=== PATIENT | male | born 1935 | race Caucasian/White ===

== ENCOUNTER 2017-04-15 11:29 | Emergency (ER) | payer MEDICARE ==
[~2017-04-15] VITALS: Ht 182.9 cm; Wt 76.2 kg
[~2017-04-15 11:29] MED LIST: ASPI-515 PO; ATOR20TA9 PO; CHOL10003 PO; GLUC1CAP18 PO; MULT-82 PO; NIAC500T PO; calcium PO; iron PO
[2017-04-15] MEDS ORDERED: METO25TA35 PO (11:39)
[2017-04-15] MEDS ORDERED: LEVO25TA4 PO (11:39)
[2017-04-15] MEDS ORDERED: L.E.T SOLUTION TP ONE ×4 (11:52→12:21)
[2017-04-15] MEDS ORDERED: SODIUM CHLORIDE 0.9% 1,000ML IVBOLUS ONE (12:00)
[2017-04-15] MEDS ORDERED: SODIUM CHLORIDE FLUSH 10ML SYR IVF ONE (12:00)
[2017-04-15 12:23] LABS: BLOOD UREA NITROGEN 27 mg/dL (7-18)
[2017-04-15 14:10] VITALS: BP 129/68
== END 2017-04-15 14:51 | disposition home or self-care (01) ==
LOC: ED 11:54
DX: S01.01XA Laceration without foreign body of scalp, initial encounter (principal); S50.311A Abrasion of right elbow, initial encounter; I48.2 Chronic atrial fibrillation; E78.00 Pure hypercholesterolemia, unspecified; W01.0XXA Fall on same level from slipping, tripping and stumbling without subsequent striking against object, initial encounter; Y93.01 Activity, walking, marching and hiking; Y92.410 Unspecified street and highway as the place of occurrence of the external cause; Y99.8 Other external cause status
CPT/HCPCS: 12002; 36415; 70450; 71010; 72072; 80048; 82040; 85025; 85610; 85730; 93005; 96360; 96361; 99285; J7030

== ENCOUNTER → 2017-04-21 | Outpatient (CLI) | payer MEDICARE ==
[~2017-04-21] MED LIST changes: +LEVO25TA4 PO; +METO25TA35 PO
== END | disposition home or self-care (01) ==
LOC: CVU 11:19
PROVIDERS: ATTEND Internal Medicine Cardiovascular Disease
DX: I07.1 Rheumatic tricuspid insufficiency (principal)
CPT/HCPCS: 93306

== ENCOUNTER → 2017-04-22 | Outpatient (CLI) | payer MEDICARE ==
[~2017-04-22] MED LIST changes: +REGADENOSON 0.4 MG/5 ML SYRINGE ONE
== END | disposition home or self-care (01) ==
LOC: CFH 11:42
PROVIDERS: ATTEND Internal Medicine Cardiovascular Disease
DX: R94.31 Abnormal electrocardiogram [ECG] [EKG] (principal)
CPT/HCPCS: 78452; 93017; A9502; J2785

== ENCOUNTER 2017-04-29 07:38 | Observation (INO) | payer MEDICARE ==
[~2017-04-29] VITALS: Ht 182.9 cm; Wt 74.9 kg
[~2017-04-29 07:38] MED LIST changes: -REGADENOSON 0.4 MG/5 ML SYRINGE ONE
[2017-04-29] MEDS ORDERED: SODIUM CHLORIDE 0.9% 1,000 ML IV SCH (07:41)
[2017-04-29] MEDS ORDERED: CEFAZOLIN PMX 1GM/50ML 50 ML IVPB ONE (08:00)
[2017-04-29] MEDS ORDERED: PLEASE ENTER HEIGHT AND WEIGHT MC SCH (08:00)
[2017-04-29] MEDS ORDERED: FENTANYL PF 100 MCG/2ML ONE (08:02)
[2017-04-29] MEDS ORDERED: CEFAZOLIN PMX 1GM/50ML 50 ML ONE (08:03)
[2017-04-29] MEDS ORDERED: MIDAZOLAM 1 MG/ML, 5ML ONE (08:03)
[2017-04-29] MEDS ORDERED: CEFAZOLIN 1,000 MG ONE (08:03)
[2017-04-29] MEDS ORDERED: LIDOCAINE 2%, 20ML ONE (08:03)
[2017-04-29 08:04] VITALS: BP 161/80
[2017-04-29] MEDS ORDERED: FERR324T8 PO (08:30)
[2017-04-29] MEDS ORDERED: METO25TA2 PO (08:30)
[2017-04-29 08:56] LABS: ASPARTATE AMINO TRANSFERASE 22 U/L (15-37); BLOOD UREA NITROGEN 17 mg/dL (7-18)
[2017-04-29] MEDS ORDERED: HYDROcodone/APAP 5/325 TABLET PO PRN (11:30)
[2017-04-29] MEDS ORDERED: ZOLPIDEM 5MG TABLET PO PRN (11:30)
[2017-04-29 13:47] VITALS: BP 109/70
[2017-04-29 14:07] VITALS: BP 113/72
[2017-04-29] MEDS: CEFAZOLIN PMX 1GM/50ML 50 ML IVPB SCH ×2 (17:21→21:02)
[2017-04-29 19:19] VITALS: BP 118/75
[2017-04-29] MEDS: SODIUM CHLORIDE FLUSH 10ML SYR IVF SCH (20:11)
[2017-04-29] MEDS ORDERED: NIACIN 500 MG TABLET.ER PO SCH (21:00)
[2017-04-29] MEDS ORDERED: ATORVASTATIN 20 MG TABLET PO SCH (21:00)
[2017-04-29] MEDS ORDERED: ASPIRIN 81 MG TABLET EC PO SCH (21:00)
[2017-04-30 02:48] VITALS: BP 128/71
[2017-04-30] MEDS ORDERED: LEVOTHYROXINE 50 MCG TABLET PO SCH (06:00)
[2017-04-30] MEDS ORDERED: METOPROLOL SUCCINATE 25 MG TAB.ER.24H PO SCH (06:00)
[2017-04-30 07:52] VITALS: BP 152/84
[2017-04-30] MEDS ORDERED: ACET325T21 PO (08:09)
[2017-04-30] MEDS: SODIUM CHLORIDE FLUSH 10ML SYR IVF SCH (08:54)
[2017-04-30] MEDS ORDERED: MULTIVITAMIN 1 TABLET PO SCH (09:00)
[2017-04-30] MEDS ORDERED: CHOLECALCIFEROL 1,000 UNIT TABLET PO SCH (09:00)
[2017-04-30] MEDS ORDERED: CALCIUM CARBONATE 500 MG TABLET PO SCH (09:00)
[2017-04-30] MEDS ORDERED: FERROUS GLUCONATE 324 MG TABLET PO SCH (09:00)
== END 2017-04-30 10:16 | disposition home or self-care (01) ==
LOC: CACL 07:38 → ORIP 11:09 → 5SO 11:28 → DCLOUNGE 04-30 10:01
PROVIDERS: ADMIT Internal Medicine Cardiovascular Disease; ATTEND Internal Medicine Cardiovascular Disease
DX: I44.1 Atrioventricular block, second degree (principal); R55 Syncope and collapse; I12.9 Hypertensive chronic kidney disease with stage 1 through stage 4 chronic kidney disease, or unspecified chronic kidney disease; N18.3 Chronic kidney disease, stage 3 (moderate); E78.5 Hyperlipidemia, unspecified; E03.9 Hypothyroidism, unspecified; I35.1 Nonrheumatic aortic (valve) insufficiency; I49.3 Ventricular premature depolarization; R73.01 Impaired fasting glucose
CPT/HCPCS: 33208; 36415; 71010; 71020; 80053; 85025; 85610; 93005; 96365; 96375; 99156; C1779; C1785; C1892; G0378; J0690; J2250; J3010; J3490

== ENCOUNTER → 2017-08-02 | Outpatient (CLI) | payer MEDICARE ==
[~2017-08-02] MED LIST changes: +ACET325T21 PO; +FERR324T8 PO; +METO25TA2 PO; +MULT-224 PO; -MULT-82 PO
== END | disposition home or self-care (01) ==
LOC: WOUND 12:53
PROVIDERS: ATTEND Specialist
DX: I87.2 Venous insufficiency (chronic) (peripheral) (principal); L97.222 Non-pressure chronic ulcer of left calf with fat layer exposed; L97.212 Non-pressure chronic ulcer of right calf with fat layer exposed; I12.9 Hypertensive chronic kidney disease with stage 1 through stage 4 chronic kidney disease, or unspecified chronic kidney disease; N18.3 Chronic kidney disease, stage 3 (moderate); E03.9 Hypothyroidism, unspecified; E78.00 Pure hypercholesterolemia, unspecified
CPT/HCPCS: 11042; G0463; WOU0463

== ENCOUNTER → 2017-08-10 | Outpatient (CLI) | payer MEDICARE | END | disposition home or self-care (01) | LOC: WOUND 09:40 | PROVIDERS: ATTEND Specialist | DX: I87.2 Venous insufficiency (chronic) (peripheral) (principal); L97.212 Non-pressure chronic ulcer of right calf with fat layer exposed; L97.222 Non-pressure chronic ulcer of left calf with fat layer exposed; E03.9 Hypothyroidism, unspecified; I12.9 Hypertensive chronic kidney disease with stage 1 through stage 4 chronic kidney disease, or unspecified chronic kidney disease; N18.3 Chronic kidney disease, stage 3 (moderate); M19.90 Unspecified osteoarthritis, unspecified site; E78.00 Pure hypercholesterolemia, unspecified; Z98.49 Cataract extraction status, unspecified eye | CPT/HCPCS: 97597 ==

== ENCOUNTER → 2017-08-24 | Outpatient (CLI) | payer MEDICARE | END | disposition home or self-care (01) | LOC: WOUND 09:53 | PROVIDERS: ATTEND Internal Medicine | DX: I87.2 Venous insufficiency (chronic) (peripheral) (principal); L97.212 Non-pressure chronic ulcer of right calf with fat layer exposed; L97.222 Non-pressure chronic ulcer of left calf with fat layer exposed; E03.9 Hypothyroidism, unspecified; E78.00 Pure hypercholesterolemia, unspecified; M19.90 Unspecified osteoarthritis, unspecified site; N18.3 Chronic kidney disease, stage 3 (moderate) | CPT/HCPCS: 97597 ==

== ENCOUNTER → 2017-09-10 | Outpatient (CLI) | payer MEDICARE | END | disposition home or self-care (01) | LOC: WOUND 08:34 | PROVIDERS: ATTEND Family Medicine | DX: E11.622 Type 2 diabetes mellitus with other skin ulcer (principal); L97.212 Non-pressure chronic ulcer of right calf with fat layer exposed; L97.222 Non-pressure chronic ulcer of left calf with fat layer exposed; E11.22 Type 2 diabetes mellitus with diabetic chronic kidney disease; I12.9 Hypertensive chronic kidney disease with stage 1 through stage 4 chronic kidney disease, or unspecified chronic kidney disease; N18.3 Chronic kidney disease, stage 3 (moderate); E03.9 Hypothyroidism, unspecified; E78.00 Pure hypercholesterolemia, unspecified; M19.90 Unspecified osteoarthritis, unspecified site; I87.2 Venous insufficiency (chronic) (peripheral) | CPT/HCPCS: 11042; 11045; 97597; 97598 ==

== ENCOUNTER → 2017-09-17 | Outpatient (CLI) | payer MEDICARE | END | disposition home or self-care (01) | LOC: WOUND 11:15 | PROVIDERS: ATTEND Family Medicine | DX: E11.622 Type 2 diabetes mellitus with other skin ulcer (principal); L97.212 Non-pressure chronic ulcer of right calf with fat layer exposed; L97.222 Non-pressure chronic ulcer of left calf with fat layer exposed; S41.112D Laceration without foreign body of left upper arm, subsequent encounter; E11.22 Type 2 diabetes mellitus with diabetic chronic kidney disease; I12.9 Hypertensive chronic kidney disease with stage 1 through stage 4 chronic kidney disease, or unspecified chronic kidney disease; N18.3 Chronic kidney disease, stage 3 (moderate); E03.9 Hypothyroidism, unspecified; E78.00 Pure hypercholesterolemia, unspecified; M19.90 Unspecified osteoarthritis, unspecified site; I87.2 Venous insufficiency (chronic) (peripheral); X58.XXXD Exposure to other specified factors, subsequent encounter | CPT/HCPCS: 97597; 97598 ==

== ENCOUNTER → 2017-09-27 | Outpatient (CLI) | payer MEDICARE | END | disposition home or self-care (01) | LOC: WOUND 11:00 | PROVIDERS: ATTEND Family Medicine | DX: E11.622 Type 2 diabetes mellitus with other skin ulcer (principal); L97.212 Non-pressure chronic ulcer of right calf with fat layer exposed; L97.222 Non-pressure chronic ulcer of left calf with fat layer exposed; S41.111D Laceration without foreign body of right upper arm, subsequent encounter; X58.XXXD Exposure to other specified factors, subsequent encounter; E11.22 Type 2 diabetes mellitus with diabetic chronic kidney disease; I12.9 Hypertensive chronic kidney disease with stage 1 through stage 4 chronic kidney disease, or unspecified chronic kidney disease; N18.3 Chronic kidney disease, stage 3 (moderate); E03.9 Hypothyroidism, unspecified; E78.00 Pure hypercholesterolemia, unspecified; M19.90 Unspecified osteoarthritis, unspecified site; I87.2 Venous insufficiency (chronic) (peripheral); Z98.49 Cataract extraction status, unspecified eye | CPT/HCPCS: 97597; 97598 ==

== ENCOUNTER → 2017-10-04 | Outpatient (CLI) | payer MEDICARE | END | disposition home or self-care (01) | LOC: WOUND 09:40 | PROVIDERS: ATTEND Family Medicine | DX: E11.622 Type 2 diabetes mellitus with other skin ulcer (principal); L97.212 Non-pressure chronic ulcer of right calf with fat layer exposed; L97.222 Non-pressure chronic ulcer of left calf with fat layer exposed; S51.812D Laceration without foreign body of left forearm, subsequent encounter; E11.22 Type 2 diabetes mellitus with diabetic chronic kidney disease; I12.9 Hypertensive chronic kidney disease with stage 1 through stage 4 chronic kidney disease, or unspecified chronic kidney disease; N18.3 Chronic kidney disease, stage 3 (moderate); E03.9 Hypothyroidism, unspecified; E78.00 Pure hypercholesterolemia, unspecified; M19.90 Unspecified osteoarthritis, unspecified site; I87.2 Venous insufficiency (chronic) (peripheral); X58.XXXD Exposure to other specified factors, subsequent encounter | CPT/HCPCS: 97597 ==

== ENCOUNTER → 2017-10-15 | Outpatient (CLI) | payer MEDICARE ==
[~2017-10-15] MED LIST changes: +FIDA200T PO; +MAGN71.5 PO
== END | disposition home or self-care (01) ==
LOC: WOUND 10:00
PROVIDERS: ATTEND Family Medicine
DX: E11.622 Type 2 diabetes mellitus with other skin ulcer (principal); L97.212 Non-pressure chronic ulcer of right calf with fat layer exposed; L97.222 Non-pressure chronic ulcer of left calf with fat layer exposed; I48.2 Chronic atrial fibrillation; E03.9 Hypothyroidism, unspecified; E78.01 Familial hypercholesterolemia; E11.22 Type 2 diabetes mellitus with diabetic chronic kidney disease; I13.0 Hypertensive heart and chronic kidney disease with heart failure and stage 1 through stage 4 chronic kidney disease, or unspecified chronic kidney disease; N18.3 Chronic kidney disease, stage 3 (moderate); I50.9 Heart failure, unspecified; M19.90 Unspecified osteoarthritis, unspecified site; I87.2 Venous insufficiency (chronic) (peripheral); Z95.0 Presence of cardiac pacemaker
CPT/HCPCS: G0463; WOU0463

== ENCOUNTER 2017-10-16 15:38 | Inpatient (IN) | payer MEDICARE ==
[~2017-10-16] VITALS: Ht 182.9 cm; Wt 81.8 kg
[~2017-10-16 15:38] MED LIST changes: -FIDA200T PO; -MAGN71.5 PO
[2017-10-16] MEDS ORDERED: SODIUM CHLORIDE 0.9% 1,000ML IVBOLUS ONE ×2 (16:30→18:00)
[2017-10-16 17:00] LABS: HEMATOCRIT 39.5 % (39.2-51.8); HEMOGLOBIN 13.3 g/dL (13.7-18.0); WHITE BLOOD COUNT 25.3 x10^3/uL (3.4-10)
[2017-10-16 17:16] LABS: BLOOD UREA NITROGEN 27 mg/dL (7-18); DIFF TOTAL CELLS COUNTED 100 CELL DIFF
[2017-10-16 17:18] LABS: VERIFY COUNTS? YES
[2017-10-16 17:31] LABS: IS PT STATUS REG ER OR PRE ER? YES
[2017-10-16] MEDS ORDERED: METRONIDAZOLE PMX 500MG/100ML 100 ML IV ONE (18:00)
[2017-10-16] MEDS ORDERED: METRONIDAZOLE PMX 500MG/100ML 100 ML ONE (18:00)
[2017-10-16] MEDS ORDERED: SODIUM CHLORIDE 0.9% 1,000 ML IV SCH (20:23)
[2017-10-16] MEDS ORDERED: SODIUM CHLORIDE 0.9% 1,000ML IV ONE (20:30)
[2017-10-16] MEDS ORDERED: ONDANSETRON ODT 4 MG PO PRN (20:30)
[2017-10-16] MEDS ORDERED: PHARMACY MAY ADJ FOR RENAL FX MC SCH (20:30)
[2017-10-16] MEDS ORDERED: ACETAMINOPHEN 325 MG TABLET PO PRN (20:30)
[2017-10-16] MEDS ORDERED: VANCOMYCIN 50 MG/ML ORAL SUSP PO SCH (21:00)
[2017-10-16] MEDS ORDERED: VANCOMYCIN PER PHARMACY MC PRN (21:00)
[2017-10-16 22:00] VITALS: BP 107/67
[2017-10-16 22:30] VITALS: BP 104/63
[2017-10-16 22:35] VITALS: BP 98/56
[2017-10-16 22:38] VITALS: BP 87/58
[2017-10-16 23:37] LABS: IS PT STATUS REG ER OR PRE ER? NO
[2017-10-17] VITALS (10 sets, daily range): BP systolic 93–114; BP diastolic 57–75
[2017-10-17] MEDS ORDERED: ENOXAPARIN 80 MG/0.8 ML SQ SCH (01:00)
[2017-10-17] MEDS ORDERED: METRONIDAZOLE PMX 500MG/100ML 100 ML IV SCH (01:00)
[2017-10-17] MEDS ORDERED: ACETAMINOPHEN 325 MG TABLET PO PRN (01:00)
[2017-10-17] MEDS: metroNIDAZOLE 500 MG TABLET PO SCH ×3 (01:32→17:39)
[2017-10-17] MEDS ORDERED: SODIUM CHLORIDE 0.9% 1,000ML IVBOLUS ONE (02:00)
[2017-10-17] MEDS: VANCOMYCIN 50 MG/ML ORAL SUSP PO SCH ×3 (03:26→17:40)
[2017-10-17] MEDS: SODIUM CHLORIDE 0.9% 1,000 ML IV SCH ×3 (03:27→19:39)
[2017-10-17 05:57] LABS: BLOOD UREA NITROGEN 21 mg/dL (7-18); HEMATOCRIT 36.9 % (39.2-51.8); HEMOGLOBIN 12.3 g/dL (13.7-18.0); WHITE BLOOD COUNT 21.1 x10^3/uL (3.4-10)
[2017-10-17 06:05] LABS: IS PT STATUS REG ER OR PRE ER? NO
[2017-10-17 06:06] LABS: ASPARTATE AMINO TRANSFERASE 25 U/L (15-37)
[2017-10-17] MEDS: FERROUS GLUCONATE 324 MG TABLET PO SCH (08:23)
[2017-10-17] MEDS: CALCIUM CITRATE 950 MG TABLET PO SCH (08:23)
[2017-10-17] MEDS: MULTIVITAMIN 1 TABLET PO SCH (08:23)
[2017-10-17] MEDS: CHOLECALCIFEROL 1,000 UNIT TABLET PO SCH (08:24)
[2017-10-17] MEDS: METOPROLOL SUCCINATE 25 MG TAB.ER.24H PO SCH (08:24)
[2017-10-17] MEDS: LEVOTHYROXINE 25 MCG TABLET PO SCH (08:42)
[2017-10-17] MEDS: ENOXAPARIN 80 MG/0.8 ML SQ SCH (14:35)
[2017-10-17] MEDS: ASPIRIN 81 MG TABLET EC PO SCH (20:02)
[2017-10-17] MEDS: NIACIN 500 MG TABLET.ER PO SCH (20:02)
[2017-10-17] MEDS: ATORVASTATIN 20 MG TABLET PO SCH (20:02)
[2017-10-18] VITALS (9 sets, daily range): BP systolic 101–126; BP diastolic 62–88
[2017-10-18] MEDS: metroNIDAZOLE 500 MG TABLET PO SCH ×3 (00:51→18:37)
[2017-10-18] MEDS: ENOXAPARIN 80 MG/0.8 ML SQ SCH ×2 (00:51→13:30)
[2017-10-18] MEDS: VANCOMYCIN 50 MG/ML ORAL SUSP PO SCH ×4 (00:54→18:36)
[2017-10-18] MEDS: SODIUM CHLORIDE 0.9% 1,000 ML IV SCH (03:45)
[2017-10-18 07:39] LABS: HEMATOCRIT 37.3 % (39.2-51.8); HEMOGLOBIN 12.4 g/dL (13.7-18.0); WHITE BLOOD COUNT 9.7 x10^3/uL (3.4-10)
[2017-10-18 07:49] LABS: BLOOD UREA NITROGEN 13 mg/dL (7-18)
[2017-10-18 07:54] LABS: ASPARTATE AMINO TRANSFERASE 28 U/L (15-37)
[2017-10-18] MEDS ORDERED: MAGNESIUM SULFATE PMX 4GM/100M 100 ML IV ONE (08:00)
[2017-10-18] MEDS: POTASSIUM CHLORIDE 40 MEQ in LACTATED RINGERS 1,000 ML IV SCH ×2 (09:08→20:12)
[2017-10-18] MEDS: CALCIUM CITRATE 950 MG TABLET PO SCH (09:13)
[2017-10-18] MEDS: MULTIVITAMIN 1 TABLET PO SCH (09:14)
[2017-10-18] MEDS: LEVOTHYROXINE 25 MCG TABLET PO SCH (09:14)
[2017-10-18] MEDS: METOPROLOL SUCCINATE 25 MG TAB.ER.24H PO SCH (09:14)
[2017-10-18] MEDS: CHOLECALCIFEROL 1,000 UNIT TABLET PO SCH (09:14)
[2017-10-18] MEDS: FERROUS GLUCONATE 324 MG TABLET PO SCH (09:14)
[2017-10-18] MEDS: ASPIRIN 81 MG TABLET EC PO SCH (20:11)
[2017-10-18] MEDS: NIACIN 500 MG TABLET.ER PO SCH (20:11)
[2017-10-18] MEDS: ATORVASTATIN 20 MG TABLET PO SCH (20:11)
[2017-10-19] VITALS (8 sets, daily range): BP systolic 101–129; BP diastolic 59–80
[2017-10-19] MEDS: metroNIDAZOLE 500 MG TABLET PO SCH (01:39)
[2017-10-19] MEDS: VANCOMYCIN 50 MG/ML ORAL SUSP PO SCH ×2 (01:39→06:30)
[2017-10-19] MEDS: ENOXAPARIN 80 MG/0.8 ML SQ SCH ×2 (01:39→15:20)
[2017-10-19] MEDS: POTASSIUM CHLORIDE 40 MEQ in LACTATED RINGERS 1,000 ML IV SCH ×3 (06:30→23:31)
[2017-10-19] MEDS: FERROUS GLUCONATE 324 MG TABLET PO SCH (09:07)
[2017-10-19] MEDS: METOPROLOL SUCCINATE 25 MG TAB.ER.24H PO SCH (09:07)
[2017-10-19] MEDS: MULTIVITAMIN 1 TABLET PO SCH (09:07)
[2017-10-19 09:08] LABS: BLOOD UREA NITROGEN 12 mg/dL (7-18)
[2017-10-19] MEDS: CHOLECALCIFEROL 1,000 UNIT TABLET PO SCH (09:08)
[2017-10-19] MEDS: LEVOTHYROXINE 25 MCG TABLET PO SCH (09:08)
[2017-10-19] MEDS: CALCIUM CITRATE 950 MG TABLET PO SCH (09:09)
[2017-10-19] MEDS: FIDAXOMICIN 200 MG TABLET PO SCH ×2 (10:50→20:01)
[2017-10-19] MEDS: ATORVASTATIN 20 MG TABLET PO SCH (20:01)
[2017-10-19] MEDS: NIACIN 500 MG TABLET.ER PO SCH (20:01)
[2017-10-19] MEDS: ASPIRIN 81 MG TABLET EC PO SCH (20:01)
[2017-10-20 02:19] VITALS: BP 113/63
[2017-10-20] MEDS: ENOXAPARIN 80 MG/0.8 ML SQ SCH ×2 (02:57→16:58)
[2017-10-20 06:27] VITALS: BP 128/73
[2017-10-20 06:29] VITALS: BP 109/74
[2017-10-20 06:31] VITALS: BP 116/73
[2017-10-20 07:27] LABS: BLOOD UREA NITROGEN 9 mg/dL (7-18)
[2017-10-20] MEDS: FERROUS GLUCONATE 324 MG TABLET PO SCH (09:32)
[2017-10-20] MEDS: CALCIUM CITRATE 950 MG TABLET PO SCH (09:32)
[2017-10-20] MEDS: FIDAXOMICIN 200 MG TABLET PO SCH ×2 (09:32→21:27)
[2017-10-20] MEDS: POTASSIUM CHLORIDE 40 MEQ in LACTATED RINGERS 1,000 ML IV SCH (09:32)
[2017-10-20] MEDS: MULTIVITAMIN 1 TABLET PO SCH (09:33)
[2017-10-20] MEDS: METOPROLOL SUCCINATE 25 MG TAB.ER.24H PO SCH (09:33)
[2017-10-20] MEDS: CHOLECALCIFEROL 1,000 UNIT TABLET PO SCH (09:33)
[2017-10-20] MEDS: LEVOTHYROXINE 25 MCG TABLET PO SCH (09:33)
[2017-10-20] MEDS ORDERED: MAGNESIUM SULFATE PMX 2GM/50ML 50 ML IV ONE (10:30)
[2017-10-20] MEDS: D5%-0.9% NACL 1,000 ML IV SCH ×2 (11:20→21:27)
[2017-10-20 13:02] VITALS: BP 130/85
[2017-10-20 19:18] VITALS: BP 127/80
[2017-10-20] MEDS: NIACIN 500 MG TABLET.ER PO SCH (21:27)
[2017-10-20] MEDS: ASPIRIN 81 MG TABLET EC PO SCH (21:27)
[2017-10-20] MEDS: ATORVASTATIN 20 MG TABLET PO SCH (21:27)
[2017-10-21 01:06] VITALS: BP 129/73
[2017-10-21] MEDS: ENOXAPARIN 80 MG/0.8 ML SQ SCH (04:00)
[2017-10-21] MEDS: D5%-0.9% NACL 1,000 ML IV SCH (04:00)
[2017-10-21 06:31] VITALS: BP 125/76
[2017-10-21 06:38] VITALS: BP_SYST 112; BP_SYST 118; BP_DIAS 70; BP_DIAS 74
[2017-10-21 08:10] LABS: HEMATOCRIT 36.4 % (39.2-51.8); HEMOGLOBIN 12.1 g/dL (13.7-18.0); WHITE BLOOD COUNT 9.8 x10^3/uL (3.4-10)
[2017-10-21 08:22] LABS: BLOOD UREA NITROGEN 6 mg/dL (7-18)
[2017-10-21] MEDS: FIDAXOMICIN 200 MG TABLET PO SCH (09:21)
[2017-10-21] MEDS: CALCIUM CITRATE 950 MG TABLET PO SCH (09:21)
[2017-10-21] MEDS: CHOLECALCIFEROL 1,000 UNIT TABLET PO SCH (09:21)
[2017-10-21] MEDS: METOPROLOL SUCCINATE 25 MG TAB.ER.24H PO SCH (09:21)
[2017-10-21] MEDS: FERROUS GLUCONATE 324 MG TABLET PO SCH (09:22)
[2017-10-21] MEDS: LEVOTHYROXINE 25 MCG TABLET PO SCH (09:22)
[2017-10-21] MEDS: MULTIVITAMIN 1 TABLET PO SCH (09:22)
[2017-10-21] MEDS ORDERED: CHOLESTYRAMINE LIGHT 4GM PACKET PO SCH (11:00)
[2017-10-21] MEDS ORDERED: MAGN71.5 PO (11:23)
[2017-10-21] MEDS ORDERED: FIDA200T PO (11:23)
[2017-10-21 12:39] VITALS: BP 121/81
== END 2017-10-21 13:50 | disposition home or self-care (01) | DRG 871 ==
LOC: ED 18:10 → EDIP 18:11 → ED 18:33 → 4EST 21:02
PROVIDERS: ADMIT Surgery; ATTEND Surgery
DX: A41.9 Sepsis, unspecified organism (principal); I50.33 Acute on chronic diastolic (congestive) heart failure; A04.72 Enterocolitis due to Clostridium difficile, not specified as recurrent; N17.9 Acute kidney failure, unspecified; I48.2 Chronic atrial fibrillation; E86.0 Dehydration; E83.42 Hypomagnesemia; E03.9 Hypothyroidism, unspecified; E78.5 Hyperlipidemia, unspecified; Z95.0 Presence of cardiac pacemaker; Z79.899 Other long term (current) drug therapy
CPT/HCPCS: 36415; 70450; 71010; 74176; 80048; 80053; 80061; 81001; 81003; 82040; 82962; 83036; 83605; 83735; 84100; 84439; 84443; 84484; 85025; 85610; 85730; 87040; 87086; 87324; 89055; 93005; 93306; 96361; 96365; J1650; J3370; J3480; J7042; J3475; J7030; J7120

== ENCOUNTER → 2017-10-28 | Outpatient (CLI) | payer MEDICARE ==
[~2017-10-28] MED LIST changes: +FIDA200T PO; +MAGN71.5 PO
== END | disposition home or self-care (01) ==
LOC: WOUND 13:00
PROVIDERS: ATTEND Podiatrist Foot & Ankle Surgery
DX: I87.331 Chronic venous hypertension (idiopathic) with ulcer and inflammation of right lower extremity (principal); E11.622 Type 2 diabetes mellitus with other skin ulcer; L97.212 Non-pressure chronic ulcer of right calf with fat layer exposed; E03.9 Hypothyroidism, unspecified; I48.2 Chronic atrial fibrillation; E11.22 Type 2 diabetes mellitus with diabetic chronic kidney disease; I13.0 Hypertensive heart and chronic kidney disease with heart failure and stage 1 through stage 4 chronic kidney disease, or unspecified chronic kidney disease; N18.3 Chronic kidney disease, stage 3 (moderate); I50.33 Acute on chronic diastolic (congestive) heart failure; E78.00 Pure hypercholesterolemia, unspecified; M19.90 Unspecified osteoarthritis, unspecified site; Z95.0 Presence of cardiac pacemaker
CPT/HCPCS: 97597

== ENCOUNTER → 2017-11-04 | Outpatient (CLI) | payer MEDICARE | END | disposition home or self-care (01) | LOC: WOUND 11:23 | PROVIDERS: ATTEND Podiatrist Foot & Ankle Surgery | DX: I87.331 Chronic venous hypertension (idiopathic) with ulcer and inflammation of right lower extremity (principal); E11.622 Type 2 diabetes mellitus with other skin ulcer; L97.212 Non-pressure chronic ulcer of right calf with fat layer exposed; E03.9 Hypothyroidism, unspecified; I48.2 Chronic atrial fibrillation; E78.00 Pure hypercholesterolemia, unspecified; M19.90 Unspecified osteoarthritis, unspecified site; E78.5 Hyperlipidemia, unspecified; E78.01 Familial hypercholesterolemia; I13.0 Hypertensive heart and chronic kidney disease with heart failure and stage 1 through stage 4 chronic kidney disease, or unspecified chronic kidney disease; E11.22 Type 2 diabetes mellitus with diabetic chronic kidney disease; N18.3 Chronic kidney disease, stage 3 (moderate); I50.33 Acute on chronic diastolic (congestive) heart failure; Z95.0 Presence of cardiac pacemaker | CPT/HCPCS: 11042 ==

== ENCOUNTER → 2017-11-11 | Outpatient (CLI) | payer MEDICARE | END | disposition home or self-care (01) | LOC: WOUND 11:11 | PROVIDERS: ATTEND Podiatrist Foot & Ankle Surgery | DX: I87.331 Chronic venous hypertension (idiopathic) with ulcer and inflammation of right lower extremity (principal); E11.622 Type 2 diabetes mellitus with other skin ulcer; L97.211 Non-pressure chronic ulcer of right calf limited to breakdown of skin; I48.2 Chronic atrial fibrillation; E11.22 Type 2 diabetes mellitus with diabetic chronic kidney disease; I13.0 Hypertensive heart and chronic kidney disease with heart failure and stage 1 through stage 4 chronic kidney disease, or unspecified chronic kidney disease; N18.3 Chronic kidney disease, stage 3 (moderate); I50.33 Acute on chronic diastolic (congestive) heart failure; E78.01 Familial hypercholesterolemia; E03.9 Hypothyroidism, unspecified; M19.90 Unspecified osteoarthritis, unspecified site; Z95.0 Presence of cardiac pacemaker | CPT/HCPCS: G0463; WOU0463 ==

== ENCOUNTER → 2017-11-18 | Outpatient (CLI) | payer MEDICARE | END | disposition home or self-care (01) | LOC: WOUND 08:30 | PROVIDERS: ATTEND Podiatrist Foot & Ankle Surgery | DX: I87.331 Chronic venous hypertension (idiopathic) with ulcer and inflammation of right lower extremity (principal); L97.211 Non-pressure chronic ulcer of right calf limited to breakdown of skin; E03.9 Hypothyroidism, unspecified; M19.90 Unspecified osteoarthritis, unspecified site; E11.22 Type 2 diabetes mellitus with diabetic chronic kidney disease; I13.0 Hypertensive heart and chronic kidney disease with heart failure and stage 1 through stage 4 chronic kidney disease, or unspecified chronic kidney disease; I50.33 Acute on chronic diastolic (congestive) heart failure; N18.3 Chronic kidney disease, stage 3 (moderate); I48.2 Chronic atrial fibrillation; E78.00 Pure hypercholesterolemia, unspecified; Z79.899 Other long term (current) drug therapy; Z98.49 Cataract extraction status, unspecified eye; Z95.0 Presence of cardiac pacemaker | CPT/HCPCS: G0463; WOU0463 ==

== ENCOUNTER 2018-04-04 12:27 | Inpatient (IN) | payer MEDICARE ==
[~2018-04-04] VITALS: Ht 180.3 cm; Wt 69.7 kg
[2018-04-04] MEDS ORDERED: SODIUM CHLORIDE 0.9% 1,000 ML IV ONE (12:49)
[2018-04-04] MEDS ORDERED: SODIUM CHLORIDE 0.9% 1,000ML IVBOLUS ONE (13:00)
[2018-04-04] MEDS ORDERED: SODIUM CHLORIDE FLUSH 10ML SYR IVF ONE (13:00)
[2018-04-04 13:14] LABS: MEAN CORPUSCULAR HGB CONC 33.6 g/dL (33.2-36.2); MEAN CORPUSCULAR VOLUME 98.1 fL (81-97); MEAN PLATELET VOLUME 8.2 fL (7.4-10.4); PLATELET COUNT 162 x10^3/uL (130-400); RED CELL DISTRIBUTION WIDTH 12.9 % (9.4-14.8)
[2018-04-04 13:26] LABS: ALBUMIN 3.6 g/dL (3.4-5.0); ANION GAP 9 mmol/L (5-15); CALCIUM 9.3 mg/dL (8.5-10.1); CHLORIDE 106 mmol/L (98-107); CREATININE 1.52 mg/dL (0.7-1.3)
[2018-04-04 13:33] LABS: MD YES
[2018-04-04 13:34] LABS: BAND#(MANUAL) 1.03 x10^3/uL; BANDS%(MANUAL) 4 % (0-7); LYMPH#(MANUAL) 0.26 x10^3/uL (1-3.4); LYMPHS% (MANUAL) 1 % (22-44)
[2018-04-04 13:35] LABS: <PLATELET ESTIMATE> ADEQUATE; <PLT MORPHOLOGY> NORMAL PLT MORPH; <RBC MORPHOLOGY> NORMAL; MONOS#(MANUAL) 1.03 x10^3/uL (0.3-2.7); MONOS% (MANUAL) 4 % (2-9); SEG#(MANUAL) 23.48 x10^3/uL (1.8-6.8); SEGS% (MANUAL) 91 % (42-75)
[2018-04-04 13:37] LABS: CULTURE INDICATED? NO; MICROSCOPIC NOT IND
[2018-04-04] MEDS ORDERED: SODIUM CHLORIDE FLUSH 10ML SYR IVF PRN (16:00)
[2018-04-04] MEDS ORDERED: ACETAMINOPHEN 325 MG TABLET PO PRN ×2 (16:30)
[2018-04-04] MEDS ORDERED: ENALAPRILAT 1.25 MG/ML, 2ML IVPush PRN (16:30)
[2018-04-04] MEDS ORDERED: ONDANSETRON ODT 4 MG PO PRN (16:30)
[2018-04-04] MEDS ORDERED: LABETALOL 5MG/ML, 20ML IVPush PRN (16:30)
[2018-04-04] MEDS: MAGNESIUM CHLORIDE 143 MG HOMEMEDPO SCH (17:00)
[2018-04-04] MEDS: HEPARIN 5,000 UNITS/ML, 1ML SQ SCH (17:45)
[2018-04-04] MEDS: SODIUM CHLORIDE 0.9% 1,000 ML IV SCH (17:45)
[2018-04-04 18:42] VITALS: BP 109/69
[2018-04-04] MEDS: ATORVASTATIN 20 MG TABLET PO SCH (21:11)
[2018-04-04] MEDS: ASPIRIN 81 MG TABLET EC PO SCH (21:11)
[2018-04-04 22:08] LABS: CLOSTRIDIUM DIFFICILE ANTIGEN POSITIVE; CLOSTRIDIUM DIFFICILE TOXIN POSITIVE (Negative)
[2018-04-04] MEDS: VANCOMYCIN 50 MG/ML ORAL SUSP PO SCH (23:10)
[2018-04-05 02:20] VITALS: BP 112/66
[2018-04-05] MEDS: SODIUM CHLORIDE 0.9% 1,000 ML IV SCH (03:17)
[2018-04-05] MEDS: VANCOMYCIN 50 MG/ML ORAL SUSP PO SCH ×4 (04:24→20:46)
[2018-04-05] MEDS: HEPARIN 5,000 UNITS/ML, 1ML SQ SCH ×3 (04:24→20:46)
[2018-04-05 04:54] LABS: MEAN CORPUSCULAR HEMOGLOBIN 32.8 pg (27.5-34.5); MEAN CORPUSCULAR HGB CONC 33.4 g/dL (33.2-36.2); MEAN CORPUSCULAR VOLUME 98.3 fL (81-97); MEAN PLATELET VOLUME 8.8 fL (7.4-10.4); PLATELET COUNT 132 x10^3/uL (130-400); RED BLOOD COUNT 3.62 x10^6/uL (4.38-5.82)
[2018-04-05 05:07] LABS: ANION GAP 10 mmol/L (5-15); CALCIUM 8.3 mg/dL (8.5-10.1); CHLORIDE 109 mmol/L (98-107)
[2018-04-05 05:10] LABS: CREATININE 1.44 mg/dL (0.7-1.3)
[2018-04-05 05:46] LABS: MD YES
[2018-04-05 05:48] LABS: <PLATELET ESTIMATE> ADEQUATE; <PLT MORPHOLOGY> NORMAL PLT MORPH; <RBC MORPHOLOGY> NORMAL; BAND#(MANUAL) 1.59 x10^3/uL; BANDS%(MANUAL) 5 % (0-7); LYMPH#(MANUAL) 0.32 x10^3/uL (1-3.4); LYMPHS% (MANUAL) 1 % (22-44); MONOS#(MANUAL) 1.27 x10^3/uL (0.3-2.7); MONOS% (MANUAL) 4 % (2-9); SEG#(MANUAL) 28.62 x10^3/uL (1.8-6.8); SEGS% (MANUAL) 90 % (42-75)
[2018-04-05] MEDS: MAGNESIUM CHLORIDE 143 MG HOMEMEDPO SCH ×2 (08:00→16:44)
[2018-04-05 08:43] VITALS: BP 96/58
[2018-04-05] MEDS: FERROUS GLUCONATE 324 MG HOMEMEDPO SCH (09:00)
[2018-04-05] MEDS: METOPROLOL SUCCINATE 25 MG TAB.ER.24H PO SCH (09:00)
[2018-04-05] MEDS: CHOLECALCIFEROL 1,000 UNIT TABLET PO SCH (09:32)
[2018-04-05] MEDS: MULTIVITAMIN 1 TABLET PO SCH (09:32)
[2018-04-05] MEDS: LEVOTHYROXINE 25 MCG TABLET PO SCH (09:32)
[2018-04-05 12:20] VITALS: BP 127/66
[2018-04-05 15:22] LABS: FOLATE LEVEL > 20.0 ng/mL (3.1-17.5)
[2018-04-05 18:39] VITALS: BP 98/60
[2018-04-05] MEDS: ASPIRIN 81 MG TABLET EC PO SCH (20:45)
[2018-04-05] MEDS: ATORVASTATIN 20 MG TABLET PO SCH (20:45)
[2018-04-06 00:32] VITALS: BP 111/72
[2018-04-06] MEDS: VANCOMYCIN 50 MG/ML ORAL SUSP PO SCH ×4 (04:54→23:41)
[2018-04-06] MEDS: HEPARIN 5,000 UNITS/ML, 1ML SQ SCH ×3 (04:54→21:45)
[2018-04-06 05:05] LABS: BASOPHILS # (AUTO) 0.01 x10^3/uL (0-0.1); BASOPHILS % (AUTO) 0 % (0-1); EOSINOPHILS % (AUTO) 1 % (1-7); LYMPHOCYTES # (AUTO) 1.04 x10^3/uL (1-3.4); LYMPHOCYTES % (AUTO) 6 % (22-44); MD NO; MEAN CORPUSCULAR HEMOGLOBIN 32.3 pg (27.5-34.5); MEAN CORPUSCULAR HGB CONC 33.2 g/dL (33.2-36.2); MEAN CORPUSCULAR VOLUME 97.2 fL (81-97); MEAN PLATELET VOLUME 8.9 fL (7.4-10.4); MONOCYTES % (AUTO) 7 % (2-9); NEUTROPHILS # (AUTO) 15.58 x10^3/uL (1.8-6.8); NEUTROPHILS % (AUTO) 86 % (42-75); PLATELET COUNT 129 x10^3/uL (130-400); RED BLOOD COUNT 3.52 x10^6/uL (4.38-5.82); RED CELL DISTRIBUTION WIDTH 12.6 % (9.4-14.8)
[2018-04-06 05:15] LABS: CHLORIDE 110 mmol/L (98-107)
[2018-04-06 05:23] LABS: % IRON SATURATION 8 % (20-55); ALANINE AMINOTRANSFERASE 14 U/L (12-78); ALBUMIN 2.6 g/dL (3.4-5.0); ALKALINE PHOSPHATASE 59 U/L (45-117); ANION GAP 9 mmol/L (5-15); BILIRUBIN,TOTAL 0.4 mg/dL (0.2-1.0); CALCIUM 8.1 mg/dL (8.5-10.1); IRON LEVEL 15 mcg/dL (65-175); TOTAL IRON BINDING CAPACITY 194 mcg/dL (250-450)
[2018-04-06 06:34] VITALS: BP 105/65
[2018-04-06] MEDS: MAGNESIUM CHLORIDE 143 MG HOMEMEDPO SCH ×2 (08:00→16:48)
[2018-04-06] MEDS ORDERED: IRON DEXTRAN IV PER PHARMACY IV PRN (08:30)
[2018-04-06] MEDS: METOPROLOL SUCCINATE 25 MG TAB.ER.24H PO SCH (08:56)
[2018-04-06] MEDS: POTASSIUM CHLORIDE 10 MEQ in SODIUM CHLORIDE 0.9% 1,000 ML IV SCH ×2 (08:56→21:13)
[2018-04-06] MEDS: CHOLECALCIFEROL 1,000 UNIT TABLET PO SCH (08:56)
[2018-04-06] MEDS: MULTIVITAMIN 1 TABLET PO SCH (08:56)
[2018-04-06] MEDS: LEVOTHYROXINE 25 MCG TABLET PO SCH (08:56)
[2018-04-06] MEDS: IRON SUCROSE COMPLEX 100MG/5ML IV SCH (08:59)
[2018-04-06] MEDS: FERROUS GLUCONATE 324 MG HOMEMEDPO SCH (09:00)
[2018-04-06 12:14] VITALS: BP 122/74
[2018-04-06 20:02] VITALS: BP 110/69
[2018-04-06] MEDS: ASPIRIN 81 MG TABLET EC PO SCH (21:45)
[2018-04-06] MEDS: ATORVASTATIN 20 MG TABLET PO SCH (21:46)
[2018-04-07 04:24] VITALS: BP 114/73
[2018-04-07 04:37] LABS: BASOPHILS # (AUTO) 0.02 x10^3/uL (0-0.1); BASOPHILS % (AUTO) 0 % (0-1); EOSINOPHILS # (AUTO) 0.22 x10^3/uL (0-0.4); EOSINOPHILS % (AUTO) 3 % (1-7); LYMPHOCYTES # (AUTO) 0.95 x10^3/uL (1-3.4); LYMPHOCYTES % (AUTO) 12 % (22-44); MD NO; MEAN CORPUSCULAR HEMOGLOBIN 32.8 pg (27.5-34.5); MEAN CORPUSCULAR HGB CONC 33.5 g/dL (33.2-36.2); MEAN CORPUSCULAR VOLUME 97.8 fL (81-97); MEAN PLATELET VOLUME 8.6 fL (7.4-10.4); MONOCYTES # (AUTO) 0.88 x10^3/uL (0.2-0.8); MONOCYTES % (AUTO) 11 % (2-9); NEUTROPHILS # (AUTO) 5.76 x10^3/uL (1.8-6.8); NEUTROPHILS % (AUTO) 74 % (42-75); PLATELET COUNT 134 x10^3/uL (130-400); RED BLOOD COUNT 3.44 x10^6/uL (4.38-5.82); RED CELL DISTRIBUTION WIDTH 12.8 % (9.4-14.8)
[2018-04-07 04:44] LABS: CHLORIDE 113 mmol/L (98-107)
[2018-04-07 04:51] LABS: ALANINE AMINOTRANSFERASE 18 U/L (12-78); ALBUMIN 2.6 g/dL (3.4-5.0); ALKALINE PHOSPHATASE 51 U/L (45-117); ANION GAP 5 mmol/L (5-15); BILIRUBIN,TOTAL 0.3 mg/dL (0.2-1.0); CALCIUM 7.6 mg/dL (8.5-10.1); CREATININE 1.36 mg/dL (0.7-1.3)
[2018-04-07] MEDS: VANCOMYCIN 50 MG/ML ORAL SUSP PO SCH (05:40)
[2018-04-07] MEDS: HEPARIN 5,000 UNITS/ML, 1ML SQ SCH (05:40)
[2018-04-07] MEDS: POTASSIUM CHLORIDE 10 MEQ in SODIUM CHLORIDE 0.9% 1,000 ML IV SCH (06:23)
[2018-04-07] MEDS: MAGNESIUM CHLORIDE 143 MG HOMEMEDPO SCH (07:33)
[2018-04-07] MEDS: FERROUS GLUCONATE 324 MG HOMEMEDPO SCH (07:34)
[2018-04-07 08:00] VITALS: BP 133/74
[2018-04-07] MEDS: IRON SUCROSE COMPLEX 100MG/5ML IV SCH (08:13)
[2018-04-07] MEDS: MULTIVITAMIN 1 TABLET PO SCH (08:13)
[2018-04-07] MEDS: METOPROLOL SUCCINATE 25 MG TAB.ER.24H PO SCH (08:13)
[2018-04-07] MEDS: LEVOTHYROXINE 25 MCG TABLET PO SCH (08:13)
[2018-04-07] MEDS: CHOLECALCIFEROL 1,000 UNIT TABLET PO SCH (08:13)
[2018-04-07] MEDS ORDERED: VANCOMYCIN PO (09:47)
== END 2018-04-07 11:28 | disposition home or self-care (01) | DRG 871 ==
LOC: ED 15:55 → EDIP 15:56 → ED 16:07 → 3NE 16:50
PROVIDERS: ADMIT Hospitalist; ATTEND Hospitalist
DX: A41.9 Sepsis, unspecified organism (principal); N17.0 Acute kidney failure with tubular necrosis; A04.71 Enterocolitis due to Clostridium difficile, recurrent; I50.9 Heart failure, unspecified; D53.9 Nutritional anemia, unspecified; D50.9 Iron deficiency anemia, unspecified; E03.9 Hypothyroidism, unspecified; E78.5 Hyperlipidemia, unspecified; E86.0 Dehydration; N18.9 Chronic kidney disease, unspecified; I48.2 Chronic atrial fibrillation; Z95.0 Presence of cardiac pacemaker; R29.6 Repeated falls
CPT/HCPCS: 36415; 74177; 80048; 80053; 81003; 82040; 82607; 82746; 83540; 83550; 83605; 83735; 84100; 85025; 87040; 87324; 89055; 99285; J1644; J1756; J3370; J3480; J7030

== ENCOUNTER → 2018-06-21 | Outpatient (CLI) | payer MEDICARE ==
[~2018-06-21] MED LIST changes: +VANCOMYCIN PO
[2018-06-21 10:31] LABS: BASOPHILS # (AUTO) 0.01 x10^3/uL (0-0.1); BASOPHILS % (AUTO) 0 % (0-1); EOSINOPHILS # (AUTO) 0.12 x10^3/uL (0-0.4); EOSINOPHILS % (AUTO) 1 % (1-7); LYMPHOCYTES # (AUTO) 1.17 x10^3/uL (1-3.4); LYMPHOCYTES % (AUTO) 9 % (22-44); MD NO; MEAN CORPUSCULAR HEMOGLOBIN 31.6 pg (27.5-34.5); MEAN CORPUSCULAR HGB CONC 33.3 g/dL (33.2-36.2); MEAN PLATELET VOLUME 8.8 fL (7.4-10.4); MONOCYTES # (AUTO) 0.83 x10^3/uL (0.2-0.8); MONOCYTES % (AUTO) 7 % (2-9); NEUTROPHILS # (AUTO) 10.34 x10^3/uL (1.8-6.8); NEUTROPHILS % (AUTO) 83 % (42-75); PLATELET COUNT 245 x10^3/uL (130-400); RED BLOOD COUNT 4.29 x10^6/uL (4.38-5.82); RED CELL DISTRIBUTION WIDTH 14.3 % (9.4-14.8)
== END | disposition home or self-care (01) ==
LOC: STAR 08:50
PROVIDERS: ATTEND Surgery
DX: Z01.818 Encounter for other preprocedural examination (principal); K40.90 Unilateral inguinal hernia, without obstruction or gangrene, not specified as recurrent
CPT/HCPCS: 36415; 85025; 93005

== ENCOUNTER → 2018-06-22 | Outpatient (CLI) | payer MEDICARE ==
[~2018-06-22] MED LIST changes: +REGADENOSON 0.4 MG/5 ML SYRINGE ONE
== END | disposition home or self-care (01) ==
LOC: CFH 08:36
PROVIDERS: ATTEND Internal Medicine Cardiovascular Disease
DX: Z01.818 Encounter for other preprocedural examination (principal); I35.1 Nonrheumatic aortic (valve) insufficiency
CPT/HCPCS: 78452; 93017; A9502; J2785

== ENCOUNTER 2018-06-30 07:56 | Day surgery (SDC) | payer MEDICARE ==
[~2018-06-30] VITALS: Ht 180.3 cm; Wt 70.9 kg
[~2018-06-30 07:56] MED LIST changes: +APIX2.5T PO; +ASPI-496 PO; +BUPIVACAINE/PF 0.5% ONE; +CALC600T4 PO; +IRON18TA PO; +LACT-103 PO; +LACT1CAP35 PO; +LEVO88TA4 PO; -REGADENOSON 0.4 MG/5 ML SYRINGE ONE
[2018-06-30 08:49] VITALS: BP 145/81
[2018-06-30] MEDS ORDERED: LACTATED RINGERS 1,000 ML IV SCH (09:00)
[2018-06-30] MEDS ORDERED: SCOPOLAMINE PATCH, 1.5MG PATCH.TD72 TD ONE (09:00)
[2018-06-30] MEDS ORDERED: GABAPENTIN 300 MG CAPSULE PO ONE (09:00)
[2018-06-30] MEDS ORDERED: ONDANSETRON 2MG/ML, 2ML IVPush ONE (09:00)
[2018-06-30] MEDS ORDERED: ACETAMINOPHEN 500 MG TABLET PO ONE (09:00)
[2018-06-30] MEDS ORDERED: ONDANSETRON 2MG/ML, 2ML ONE (10:19)
[2018-06-30] MEDS ORDERED: DEXAMETHASONE 4 MG/ML, 1ML ONE (10:19)
[2018-06-30] MEDS ORDERED: EPHEDRINE 50 MG/ML, 1ML ONE (10:19)
[2018-06-30] MEDS ORDERED: PROPOFOL 10 MG/ML, 20ML ONE (10:19)
[2018-06-30] MEDS ORDERED: CEFAZOLIN 1,000 MG ONE (10:19)
[2018-06-30] MEDS ORDERED: METOCLOPRAMIDE 5 MG/ML, 2ML ONE (10:19)
[2018-06-30] MEDS ORDERED: PHENYLEPHRINE 10 MG/ML ONE (10:19)
[2018-06-30] MEDS ORDERED: MIDAZOLAM 1 MG/ML, 2ML ONE (10:26)
[2018-06-30] MEDS ORDERED: FENTANYL PF 100 MCG/2ML ONE (10:26)
[2018-06-30] MEDS ORDERED: MIDAZOLAM 1 MG/ML, 2ML IV PRN ×2 (10:30)
[2018-06-30] MEDS ORDERED: HYDROmorphone 1 MG/ML, 1ML IV PRN ×2 (10:30)
[2018-06-30] MEDS ORDERED: FENTANYL PF 100 MCG/2ML IV PRN ×2 (10:30)
[2018-06-30] MEDS ORDERED: MEPERIDINE/PF 25MG/0.5ML IVPush PRN ×2 (10:30)
[2018-06-30] MEDS ORDERED: ONDANSETRON 2MG/ML, 2ML IVPush PRN ×2 (10:30)
[2018-06-30] MEDS ORDERED: OXYcodone 5 MG/5 ML ORAL.SOL UDC PO PRN ×2 (10:30)
[2018-06-30] MEDS ORDERED: LABETALOL 5MG/ML, 20ML IV PRN ×2 (10:30)
[2018-06-30] MEDS ORDERED: BUPIVACAINE/PF-EPI 0.5% 1:200K INFIL ONE (10:49)
[2018-06-30] MEDS ORDERED: OXYcodone 5 MG/5 ML ORAL.SOL UDC ONE (12:50)
== END 2018-06-30 14:30 | disposition home or self-care (01) ==
LOC: OR 07:56 → OUT 14:30
PROVIDERS: ATTEND Surgery
DX: K40.90 Unilateral inguinal hernia, without obstruction or gangrene, not specified as recurrent (principal); I48.91 Unspecified atrial fibrillation; E78.00 Pure hypercholesterolemia, unspecified; E03.9 Hypothyroidism, unspecified; Z87.39 Personal history of other diseases of the musculoskeletal system and connective tissue; Z95.0 Presence of cardiac pacemaker; Z79.82 Long term (current) use of aspirin; Z79.899 Other long term (current) drug therapy; Z98.890 Other specified postprocedural states; Z98.49 Cataract extraction status, unspecified eye; Z88.8 Allergy status to other drugs, medicaments and biological substances
CPT/HCPCS: 49525; C1781; J0690; J1100; J2250; J2370; J2405; J2704; J2765; J3010; J3490; J7120

== ENCOUNTER 2018-07-03 15:33 | Inpatient (IN) | payer MEDICARE ==
[~2018-07-03] VITALS: Ht 180.3 cm; Wt 73.6 kg
[~2018-07-03 15:33] MED LIST changes: -BUPIVACAINE/PF 0.5% ONE
[2018-07-03 16:39] LABS: BASOPHILS # (AUTO) 0.14 x10^3/uL (0-0.1); BASOPHILS % (AUTO) 1 % (0-1); EOSINOPHILS # (AUTO) 0.09 x10^3/uL (0-0.4); EOSINOPHILS % (AUTO) 1 % (1-7); LYMPHOCYTES # (AUTO) 0.65 x10^3/uL (1-3.4); LYMPHOCYTES % (AUTO) 4 % (22-44); MD NO; MEAN CORPUSCULAR HEMOGLOBIN 32.3 pg (27.5-34.5); MEAN CORPUSCULAR HGB CONC 33.6 g/dL (33.2-36.2); MEAN CORPUSCULAR VOLUME 96.2 fL (81-97); MEAN PLATELET VOLUME 8.7 fL (7.4-10.4); MONOCYTES # (AUTO) 0.87 x10^3/uL (0.2-0.8); MONOCYTES % (AUTO) 6 % (2-9); NEUTROPHILS # (AUTO) 13.33 x10^3/uL (1.8-6.8); NEUTROPHILS % (AUTO) 88 % (42-75); PLATELET COUNT 164 x10^3/uL (130-400); RED BLOOD COUNT 3.91 x10^6/uL (4.38-5.82); RED CELL DISTRIBUTION WIDTH 14.5 % (9.4-14.8)
[2018-07-03 16:47] LABS: ALANINE AMINOTRANSFERASE 18 U/L (12-78); ALBUMIN 3.4 g/dL (3.4-5.0); ANION GAP 4 mmol/L (5-15); CALCIUM 9.2 mg/dL (8.5-10.1); CHLORIDE 105 mmol/L (98-107); CREATININE 1.18 mg/dL (0.7-1.3)
[2018-07-03 16:50] LABS: ALKALINE PHOSPHATASE 86 U/L (45-117); BILIRUBIN,TOTAL 0.8 mg/dL (0.2-1.0); TOTAL PROTEIN 7.7 g/dL (6.4-8.2)
[2018-07-03] MEDS ORDERED: OMNIPAQUE 350 MG/ML, 100ML BOTTLE ONE (17:25)
[2018-07-03] MEDS ORDERED: PINK LADY ENEMA 490 ML BOTTLE PR ONE ×2 (18:30→20:00)
[2018-07-03] MEDS ORDERED: ACETAMINOPHEN 500 MG TABLET PO ONE (20:00)
[2018-07-03] MEDS ORDERED: SODIUM CHLORIDE 0.9% 1,000ML IVBOLUS ONE (20:00)
[2018-07-03] MEDS ORDERED: MOVIPREP POWDER 1 PREP KIT PO ONE (20:00)
[2018-07-03] MEDS ORDERED: POLYETHYLENE GLYCOL 17 GM PACKET NG ONE (20:00)
[2018-07-03] MEDS ORDERED: HEMORRHOIDAL SUPP.RECT PR ONE (20:30)
[2018-07-03 20:32] LABS: BASOPHILS # (AUTO) 0.33 x10^3/uL (0-0.1); BASOPHILS % (AUTO) 2 % (0-1); EOSINOPHILS # (AUTO) 0.05 x10^3/uL (0-0.4); EOSINOPHILS % (AUTO) 0 % (1-7); LYMPHOCYTES # (AUTO) 0.85 x10^3/uL (1-3.4); LYMPHOCYTES % (AUTO) 5 % (22-44); MD NO; MEAN CORPUSCULAR HEMOGLOBIN 31.8 pg (27.5-34.5); MEAN CORPUSCULAR HGB CONC 33.3 g/dL (33.2-36.2); MEAN CORPUSCULAR VOLUME 95.6 fL (81-97); MEAN PLATELET VOLUME 8.9 fL (7.4-10.4); MONOCYTES % (AUTO) 6 % (2-9); NEUTROPHILS # (AUTO) 14.11 x10^3/uL (1.8-6.8); NEUTROPHILS % (AUTO) 87 % (42-75); PLATELET COUNT 165 x10^3/uL (130-400); RED BLOOD COUNT 4.08 x10^6/uL (4.38-5.82); RED CELL DISTRIBUTION WIDTH 14.9 % (9.4-14.8)
[2018-07-03 20:42] LABS: INTERNATIONAL NORMALIZED RATIO 1.05 (0.93-1.1); PROTHROMBIN TIME 10.9 Seconds (9.6-11.5)
[2018-07-03] MEDS ORDERED: ACETAMINOPHEN 500 MG TABLET ONE (20:51)
[2018-07-03 21:24] VITALS: BP 160/80
[2018-07-03] MEDS ORDERED: LACTOSE FREE FOOD PO SCH (22:00)
[2018-07-03] MEDS ORDERED: ACETAMINOPHEN 325 MG TABLET PO PRN (22:00)
[2018-07-03] MEDS ORDERED: LABETALOL 5MG/ML, 20ML IVPush PRN (22:00)
[2018-07-03] MEDS ORDERED: ONDANSETRON ODT 4 MG PO PRN (22:00)
[2018-07-03] MEDS ORDERED: TEMAZEPAM 15 MG CAPSULE PO PRN (22:00)
[2018-07-03] MEDS: FERROUS SULFATE 325 MG TABLET PO SCH (22:30)
[2018-07-04 01:08] VITALS: BP 152/83
[2018-07-04] MEDS ORDERED: MOVIPREP POWDER 1 PREP KIT PO ONE (06:00)
[2018-07-04] MEDS: FERROUS SULFATE 325 MG TABLET PO SCH (07:48)
[2018-07-04 08:15] VITALS: BP 117/66
[2018-07-04] MEDS ORDERED: CALCIUM CARBONATE 500 MG TABLET PO SCH (09:00)
[2018-07-04] MEDS ORDERED: LEVOTHYROXINE 88 MCG TABLET PO SCH (09:00)
[2018-07-04] MEDS ORDERED: LACTOBACILLUS CHEW TABLET PO SCH (09:00)
[2018-07-04] MEDS ORDERED: CHOLECALCIFEROL 1,000 UNIT TABLET PO SCH (09:00)
[2018-07-04] MEDS ORDERED: METOPROLOL SUCCINATE 25 MG TAB.ER.24H PO SCH (09:00)
[2018-07-04] MEDS ORDERED: MULTIVITAMIN 1 TABLET PO SCH (09:00)
[2018-07-04] MEDS ORDERED: ATORVASTATIN 20 MG TABLET PO SCH (21:00)
== END 2018-07-04 13:33 | disposition home or self-care (01) | DRG 394 ==
LOC: ED 17:04 → EDIP 20:25 → 3NE 21:15
PROVIDERS: ADMIT Internal Medicine; ATTEND Internal Medicine
DX: K62.6 Ulcer of anus and rectum (principal); K62.5 Hemorrhage of anus and rectum; J98.11 Atelectasis; D68.69 Other thrombophilia; K62.89 Other specified diseases of anus and rectum; K59.00 Constipation, unspecified; D64.9 Anemia, unspecified; K64.9 Unspecified hemorrhoids; E03.9 Hypothyroidism, unspecified; E78.5 Hyperlipidemia, unspecified; I48.2 Chronic atrial fibrillation; R29.6 Repeated falls; N18.9 Chronic kidney disease, unspecified; Z86.19 Personal history of other infectious and parasitic diseases; Z95.0 Presence of cardiac pacemaker
CPT/HCPCS: 36415; 74021; 74177; 80053; 85014; 85018; 85025; 85610; 85730; 86850; 86900; 96360; G0378; Q9967; J7030